=== PATIENT | female | born 1960 | race Caucasian/White ===

== ENCOUNTER 2020-11-08 08:19 | Day surgery (SDC) | payer MEDICARE, SELFPAY ==
--- NOTE | 2020-11-06 16:09 | HP.PCM_ITS ---
History and Physical Date of Admission: 11/08/20 Katja Leungjasieltamia Blissre Xochitljasieltamia Reed Physician Specialty: LUNCHROOM MONITOR H&P Signed Encounter Date: 11/05/2020 Expand AllCollapse All Expand widget buttonCollapse widget button Hide copied text Hover for detailscustomization button Pre-Op History and Physical HPI: The patient is a 60 year old female presenting for discussion for surgical mgmt of persistent PMB and Endometrial polyp found on in office ENDOSEE s/p ultrasound. Pt reports is still bleeding and cramping. She is scheduled for Hysteroscopy D&C and Polypectomy, for EM polyp and PMB on 11/08/20. Procedure discussed along with risks, benefits and complications. Other alternatives discussed for management. Consent form signed? Yes. PAST MEDICAL HISTORY PAST MEDICAL HISTORY Diagnosis Date ? Anxiety ? CNVM (choroidal neovascular membrane) ? Depression 200 ? HBP (high blood pressure) ? History of melanoma 1998 L post. shoulder ? Snoring ? Type 2 macular telangiectasis ? Wears glasses PAST SURGICAL HISTORY PAST SURGICAL HISTORY Procedure Laterality Date ? AVASTIN Left 05/19/2015 ? CHOLECYSTECTOMY HX ? COLONOSCOP W/ OR W/O BRSH SPEC 11/27/14 Colonoscopy ? PAST SURGICAL HISTORY OF Melanoma surgery (1998) - left shoulder ? PAST SURGICAL HISTORY OF tonisllectomy at age 21 CURRENT MEDICATIONS Current Outpatient Medications Medication Sig Dispense Refill ? liraglutide (VICTOZA) 0.6 mg/ 0.1 ml subcutaneous pen injector Inject 1.2 mg subcutaneously once daily. 2 Pen 11 ? hydrOXYzine HCl (ATARAX) 25 mg tablet TAKE ONE TABLET BY MOUTH 3 TIMES DAILY NEEDED FOR ANXIETY 60 tablet 2 ? metoprolol tartrate, short acting, (LOPRESSOR) 25 mg tablet TAKE ONE TABLET BY MOUTH TWICE A DAY 60 tablet 6 ? gabapentin (NEURONTIN) 300 mg capsule TAKE ONE (1) CAPSULE BY MOUTH 3 TIMES DAILY 90 capsule 2 ? lisinopril-hydrochlorothiazide (PRINZIDE,ZESTORETIC) 10-12.5 mg per tablet Take 1 tablet by mouth once daily. 90 tablet 2 ? mometasone (NASONEX) 50 mcg/actuation nasal spray Use 2 Sprays in the nose once daily. Rinse mouth after use. (Patient taking differently: Use 2 Sprays in the nose once daily as needed. Rinse mouth after use. ) 1 Bottle 11 ? Blood Pressure Test Kit-Large kit Check blood pressure weekly and as needed. 1 Each 0 ? blood sugar diagnostic (BLOOD GLUCOSE TEST) test strip Test blood sugar(s) 1 times daily. Dx: Type 2 DM - Controlled E11.9 Insulin: No 50 Strip 11 ? Lancets lancets Test blood sugar(s) 00 times daily. Dx: Type 2 DM - Uncontrolled E11.65 Insul in: No 100 Each 11 ? miSOPROStol (CYTOTEC) 200 mcg tablet Take 1 tablet by mouth as directed. Insert one tablet vaginally the night before procedure. Take one tablet orally the morning of procedure. 2 tablet 0 ? Insulin [place], Disposable, (PEN NEEDLE) 31 gauge x 3/16 1 Each once daily. 50 Each 5 No current facility-administered medications for this visit. ALLERGIES: Penicillins and Seasonal Allergies PERSONAL HISTORY: SOCIAL HISTORY Social History Tobacco Use ? Smoking status: Current Every Day Smoker Packs/day: 0.50 Types: Cigarettes ? Smokeless tobacco: Never Used Substance Use Topics ? Alcohol use: Not Currently Comment: rarely ? Drug use: No FAMILY HISTORY: FAMILY HISTORYExpand by Default FAMILY HISTORY Problem Relation Age of Onset ? Diabetes Mother ? Breast Cancer Mother 73 double masectomy ? other (heart attack) Mother ? Diabetes Father ? Essential Tremor Brother ? No Ocular Disease Other REVIEW OF SYMPTOMS: negative except as noted above PHYSICAL EXAMINATION: VITALS: Blood pressure 122/82, height 5' 5 (1.651 m), weight 262 lb (118.8 kg). GENERAL: The patient is well nourished, well hydrated in no acute distress. , The patient is oriented to time, place, and person. NECK:Full range of motion. GENITALIA: deferred today WET PREP: not indicated IMPRESSION: PMB, endometrial polyp PLAN: Hysteroscopy, D&C, polypectomy with symphion Pt has been counseled on risks/benefits and alternatives of surgery including but not limited to anesthesia, bleeding, infection, uterine perforation with subsequent injury to pelvic structures including bowel, bladder, ureters and vessels. Pt wishes to proceed with surgery at this time. I have reviewed and updated past medical and surgical history, medications and allergies Katja Reed MD
[2020-11-08] VITALS (12 sets, daily range): BP systolic 92–132; BP diastolic 53–83; PULSE 73–92; RESP 16; TEMP 36–36.2; O2SAT 92–98; BMI 42.9
[2020-11-08] MEDS: Lactated Ringers 1,000 ML 100 ML IV (09:04)
[2020-11-08 09:11] LABS: Hematocrit 43.6 % (37-47); Hemoglobin 14.6 g/dL (12.0-15.0); Mean Corp Hgb Conc 33.5 g/dL (32-36); Mean Corpuscular Hgb 29.6 pg (27.0-32.0); Mean Corpuscular Volume 88.4 fL (81-99); Mean Platelet Vol. 9.7 fl (6.2-12.0); Platelet Count 332 K/mm3 (150-450); RBC Distribution Width CV 12.9 % (11.6-14.6); Red Blood Count 4.93 M/mm3 (4.2-5.4); White Blood Count 9.5 K/mm3 (4.4-11.0)
[2020-11-08 09:11] LABS: Bedside Glucose 117 mg/dL (70-110)
--- NOTE | 2020-11-08 09:43 | PCM.DC.D&C ---
Discharge Diet: No Restrictions Discharge Activity: Return to Normal Activity, May Shower, May Take a Tub Bath - in 2 weeks. May resume sexual activity in: 1 week Call your doctor if you observe: Fever of 101 or Higher, Using more than one pad per hour Allergies/Adverse Reactions: Allergies Penicillins [PCN] Allergy (Verified 11/08/20 09:02) Swelling Medications to take at Discharge Gabapentin [Neurontin] 300 mg PO TIDCM 11/02/20 Hydroxyzine HCl 25 mg PO PRN PRN 11/02/20 Liraglutide [Victoza] 1.2 mg SQ DAILY 11/02/20 Lisinopril/Hydrochlorothiazide [Lisinopril-Hctz 10-12.5 mg Tab] 1 ea PO DAILY 11/02/20 Metoprolol Tartrate [Lopressor (Beta Kyleigh)] 25 mg PO BID 11/02/20 Orders to be completed after discharge: 12 Lead EKG [[facility]] Time Frame: 11/08/20, Facility: [facility], Location: Cardiovascular Services Primary Care Physician: Cyril Padron MD [Primary Care Provider] - Test Results: Test results from this visit will be discussed in further detail at your follow-up appointment, if applicable. Please Follow Up With: Katja Lott MD When: 2 weeks,
--- NOTE | 2020-11-08 09:45 | EMB_PTH ---
PATIENT: MITZI LIEBERMAN [place] [facility] [id number] AGE/SX: 60/F ROOM: RE11/08/[address]: Dr. Katja Lott, MDDOB: 1960 BED: DIS: 11/08/2020 SPEC #: [id number] RECD: 11/08/20 12:25 STATUS: PIERRE JEFERSON #: [id number] GRIFFIN: 11/08/20 09:[address]: Katja Lott DEPT: SURGICAL PATHOLOGY RECD BY: Jamar Tirado ENTERED: 11/09/20 11:47 SP TYPE: ENDOM BX/C ERICA DR: Dr. Cyril Padron MD Tissues: Endometrium, NOS Procedures: Surgery Specimen Level IV HEADER OPERATION: Hysteroscopy, D & C Symphion, polypectomy, myomectomy PRE-OP DIAGNOSIS: Endometrial polyp, postmenopausal bleeding TISSUE SUBMITTED: Endometrial polyp, submucosal fibroid, endometrial curettings MICROSCOPIC DIAGNOSIS Endometrial polyp and curettings: Polypoid fragments of endometrium with simple cystic hyperplasia without atypia. AM:griffin 11/12/2020 MICROSCOPIC DESCRIPTION Slides are reviewed. GROSS DESCRIPTION Received in fixative is one container labeled with the patient's name and designated endometrial polyp, submucosal fibroid, endometrial curettings. The specimen consists of multiple irregular fragments of light mitchell soft tissue that in aggregate measure 4.5 x 3 x 0.2 cm. The specimen is totally submitted in two cassettes. / AM:griffin 11/09/20 TC:5 CPT: 40774
--- NOTE | 2020-11-08 10:12 | OP.PCM_ITS ---
Report of Operation Date of Procedure: 11/08/20 - start: 957 end time 1012 Pre-Operative Diagnosis: PMB, Endometrial polyp Post-Operative Diagnosis: Same and Submucosal fibroids Surgery/Procedure Performed:: Hysteroscopy, D&C, Polypectomy, Myomectomy Description of Surgical Findings:: Multiple calcifications- likely submucosal fibroids and Endometrial polypoid tissue Type of Anesthesia:: MAC Special Medications: none Specimen's removed: Endometrial curettings, Endometrial polyp, submucosal fibroids Drains: none Estimated Blood Loss (mL): <5 cc Fluids Replaced: 200 Description of Procedure: informed consent was obtained the patient was taken the operating room she was placed in supine position. She was given anesthesia. She was then placed in the [facility] where she was prepped and draped in the normal sterile fashion. At this time the weighted speculum was placed in the posterior fornix of vagina. Single-tooth tenaculum was used to gently grasp the anterior lip the cervix. At this time the uterine cavity was sounded to approximately 7 cm. Gentle dilatation was performed once adequate dilatation of the cervix was achieved the hysteroscope using normal saline as a distention medium was placed. Tubal ostia visualized. Multiple calcifications that are likely submucosal fibroids and polypoid tissue present. . Symphion resecting device used to perform polypectomy and myomectomy as well as obtaining endometrial curettings.. Tissue will be sent to pathology for evaluation. Tenaculum removed. Good hemostasis. Instrument, lap count correct x 2. Vaginal Sweep was negative. Grafts/Implants Used: none - Complications none - Admit VTE Documentation VTE Present on Admission: Yes VTE Mechan Device Prophylaxis: SCD's VTE Pharm Prophylaxis ordered?: No
== END 2020-11-08 13:22 | disposition home or self-care (01) ==
LOC: SDC 08:19 → AC 08:19
PROVIDERS: PCP Family Medicine; Referring Provider Obstetrics & Gynecology; Visit Provider Obstetrics & Gynecology
PROC: 0UB98ZZ Excision of Uterus, Via Natural or Artificial Opening Endoscopic (ICD-10-PCS; CPT 58558; principal; 2020-11-08 09:30)
DX: D25.0 Submucous leiomyoma of uterus (principal); N85.01 Benign endometrial hyperplasia; N95.0 Postmenopausal bleeding; Z20.822 Contact with and (suspected) exposure to COVID-19; I10 Essential (primary) hypertension; E78.00 Pure hypercholesterolemia, unspecified; F32.9 Major depressive disorder, single episode, unspecified; F41.9 Anxiety disorder, unspecified; F17.210 Nicotine dependence, cigarettes, uncomplicated; Z85.820 Personal history of malignant melanoma of skin
CPT/HCPCS: 00952; 58561; 82962; 85027; 87426; 88305; C9803; J7120

== ENCOUNTER 2022-08-14 08:34 | Day surgery (SDC) | payer MEDICARE, SELFPAY ==
[2022-08-14] VITALS (12 sets, daily range): BP systolic 122–156; BP diastolic 71–94; PULSE 78–88; RESP 16–18; TEMP 36.1–36.4; O2SAT 92–95; BMI 42.0
[2022-08-14] MEDS: Lactated Ringers 1,000 ML 15 ML IV ×2 (08:55→12:03)
[2022-08-14 09:29] LABS: Hematocrit 45.1 % (37-47); Hemoglobin 14.7 g/dL (12.0-15.0); Mean Corp Hgb Conc 32.6 g/dL (32-36); Mean Corpuscular Hgb 29.9 pg (27.0-32.0); Mean Corpuscular Volume 91.7 fL (81-99); Mean Platelet Vol. 9.9 fl (6.2-12.0); Platelet Count 300 K/mm3 (150-450); RBC Distribution Width CV 12.9 % (11.6-14.6); RBC Distribution Width SD 43.2 fl (35.1-43.9); Red Blood Count 4.92 M/mm3 (4.2-5.4); White Blood Count 9.4 K/mm3 (4.4-11.0)
--- NOTE | 2022-08-14 10:00 | EMB_PTH ---
PATIENT: MITZI LIEBERMAN LOC: [facility] – [place] U#:[id number] AGE/SX: 61/F ROOM: RE08/14/[address]: Dr. Emelina Stanley DO : 1960 BED: DIS: 08/14/2022 SPEC #: [id number] RECD: 08/14/22 16:22 STATUS: PIERRE REJd #: [id number] GRIFFIN: 08/14/22 10:[address]: Emelina Stanley DEPT: SURGICAL PATHOLOGY RECD BY: Kianna Suazo ENTERED: 08/15/22 07:50 SP TYPE: ENDOM BX/C OTHR DR: Dr. Cyril Padron MD Tissues: Endometrium, NOS Procedures: Surgery Specimen Level IV HEADER OPERATION: IUD removal and insertion, hysteroscopy, D & C, polypectomy PRE-OP DIAGNOSIS: Endocervical polyp, postmenopausal state, history of hyperplasia TISSUE SUBMITTED: Endocervical polyp, endometrial curettings MICROSCOPIC DIAGNOSIS Endocervical polyp and endometrial curettings: Fragments of benign endometrial tissue with exogenous hormone effects. Polypoid fragment of endometrial tissue, consistent with endometrial polyp with cystic atrophic changes. Fragments of benign ecto- and endocervical epithelium and mucus. /LAWANDA 08/18/22 COMMENT Please make reference to previous specimen [id number], Endometrial polyp and curettings with diagnosis of polypoid fragments of endometrium with simple cystic hyperplasia without atypia. MICROSCOPIC DESCRIPTION Slides are reviewed. GROSS DESCRIPTION Received in fixative is one container labeled with the patient's name and designated endocervical polyp and endometrial curettings. The specimen consists of multiple fragments of hemorrhagic mucoid tissue that in aggregate measure 5 x 3 x 0.3 cm. The entire specimen is submitted in two cassettes. / LAWANDA:griffin 08/15/2022 TC:5 CPT: 06779
[2022-08-14 10:15] LABS: Glucose 116 mg/dL (74-106)
--- NOTE | 2022-08-14 11:30 | DCINST_ITS ---
Discharge Instructions Diet Discharge Diet: No restrictions Activity Discharge Activity: May Drive (once you are more than 24 hours out from surgery) and May Shower (once you are more than 24 hours out from surgery) May resume sexual activity in: 1-2 weeks (no intercourse, tampons, soaking in water for 1-2 weeks while having the bleeding) Weight Bearing Status: Weight bearing as tolerated Lifting Restrictions: None Dressing / Incision Call your doctor if you observe: Fever of 101 or Higher, Coldness, Increased Pain, Numbness or Tingling, Change in Color, Inability to urinate, Inability to have a bowel movement, Using more than 1 pad per hour, Shortness of breath, Dizziness, Fainting spells, Swelling in the ankles, Chest pain, Increased palpitations (irregular heartbeat), Calf discomfort and Uncontrolled pain Follow Up Care Please Follow Up With: Emelina Stanley DO When: 1-2 weeks Test Results: Test results from this visit will be discussed in further detail at your follow- up appointment, if applicable. Discharge Plan Admission Primary Reason for Your Visit: surgery Attending Provider: Emelina Stanley Primary Care Provider: Cyril Padron Discharge Orders/Prescriptions Prescriptions: Continued gabapentin 300 MG capsule 300 mg PO TIDCM hydroxyzine HCl 25 MG tablet 25 mg PO PRN PRN (Reason: Anxiety) lisinopril-hydrochlorothiazide 1 EACH tablet 1 ea PO DAILY metoprolol tartrate 25 MG tablet 25 mg PO BID Victoza 2-[place] 0.6 MG/0.1 ML pen injector 0.6 mg SQ DAILY ibuprofen 200 mg Tablet 400 mg PO Q6H PRN (Reason: Pain) atorvastatin 20 mg tablet 20 mg PO QHS Probiotic 100 billion cell Capsule 1 cap PO DAILY Cbd 1 gummy PO/SL QHS Referrals / Follow Up: Cyril Padron MD [Primary Care Provider] - Disposition Disposition (needs filled in before D/C Order can be placed): Home, Self Care
--- NOTE | 2022-08-14 11:33 | OP.PCM_ITS ---
Problems Associated Problem List Diagnoses (1) Cervical polyp: (2) Pelvic cramping: Report of Operation Date of Procedure: 08/14/22 Pre-Operative Diagnosis: Pelvic cramping, endocervical polyp Post-Operative Diagnosis: As above Surgery/Procedure Performed:: Hysteroscopy, IUD removal, D&C, endocervical polyp removal, IUD insertion Description of Surgical Findings:: Small < 1 cm endocervical polyp. Uterine cavity normal appearing with atrophic endometrium. Bilateral tubal ostia visualized. No uterine polyps noted. 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 She was prepped and draped in the dorsal lithotomy position using yellowfin stirrups. IUD strings were visualized and about 0.5 cm in length. The cervix was serially dilated to accommodate the Symphion hysteroscope. Upon dilation the IUD strings were no longer visualized. The polyp forceps were used to remove a small endocervical polyp from the cervical canal, and this polyp was sent to pathology for review. The Symphion hysteroscope was advanced to the fundus of the uterus, and normal saline was used as distention media. The uterine cavity was distended and noted to be normal-appearing without polyps. Bilateral tubal ostia were visualized. Endometrium was atrophic appearing. The IUD was incidentally removed intact when the hysteroscope was removed. The IUD was intact and normal appearing. A sharp curettage was performed for endometrial curettings. The uterus was sounded to 8 cm. Using polyp forceps the IUD was placed back into uterus at the fundus of the uterus. Bleeding was hemostatic. All instruments removed from the vagina. A vaginal sweep was performed. Inst rument and sponge counts were correct. The patient was taken to recovery in stable condition. Grafts/Implants Used: None Procedure Start Time: 10:54 Procedure Stop Time: 11:27 Complications None Admit VTE Documentation VTE Present on Admission: No VTE Mechan Device Prophylaxis: SCD's
== END 2022-08-14 13:05 | disposition home or self-care (01) ==
LOC: SDC 08:35 → AC 08:37
PROVIDERS: PCP Family Medicine; Referring Provider Obstetrics & Gynecology; Visit Provider Obstetrics & Gynecology
PROC: 0UB98ZZ Excision of Uterus, Via Natural or Artificial Opening Endoscopic (ICD-10-PCS; CPT 58558; principal; 2022-08-14 09:45)
DX: N84.1 Polyp of cervix uteri (principal); Z68.41 Body mass index [BMI] 40.0-44.9, adult; E66.01 Morbid (severe) obesity due to excess calories; E11.9 Type 2 diabetes mellitus without complications; Z30.433 Encounter for removal and reinsertion of intrauterine contraceptive device; N85.8 Other specified noninflammatory disorders of uterus; I10 Essential (primary) hypertension; F41.9 Anxiety disorder, unspecified; H35.0 Background retinopathy and retinal vascular changes; F17.210 Nicotine dependence, cigarettes, uncomplicated; Z78.0 Asymptomatic menopausal state; Z85.820 Personal history of malignant melanoma of skin; Z79.899 Other long term (current) drug therapy
CPT/HCPCS: 58558; 58301; 58300; 00952; 82947; 85027; 86850; 86900; 86901; 88305; J7120; J2405